=== PATIENT | female | born 1960 | race Hispanic/Latino ===

== ENCOUNTER → 2024-06-07 | Outpatient (REF) | payer OTHER ==
[~2024-06-07] MED LIST: MULTI-VITAMIN1 EACH PO; TUMERIC
== END ==
LOC: MAMMO 12:45
PROVIDERS: ATTEND Internal Medicine
DX: Z12.31 Encounter for screening mammogram for malignant neoplasm of breast (principal); M85.88 Other specified disorders of bone density and structure, other site
CPT/HCPCS: 77067; 77080

== ENCOUNTER 2025-08-24 17:33 | Emergency (ER) | payer MEDICARE ==
[~2025-08-24] VITALS: Ht 157.5 cm; Wt 77.6 kg
[2025-08-24 17:36] VITALS: PULSE 77; RESP 16; TEMP 98.8
[2025-08-24] MEDS ORDERED: CLEOCIN HCL300 MG PO (17:56)
[2025-08-24 18:02] VITALS: BP 131/76; PULSE 77; RESP 16; TEMP 98.8; O2SAT 98
== END 2025-08-24 18:04 | disposition home or self-care (01) ==
LOC: FSED 17:36
DX: L03.116 Cellulitis of left lower limb (principal); Z98.84 Bariatric surgery status
CPT/HCPCS: 99283